=== PATIENT | male | born 1940 | race Caucasian/White ===

== ENCOUNTER 2021-04-14 07:43 | Observation (INO) | payer OTHER ==
[2021-04-14] VITALS (20 sets, daily range): BP systolic 104–152; BP diastolic 52–69
[~2021-04-14] VITALS: Ht 172.7 cm; Wt 76.7 kg
[~2021-04-14 07:43] MED LIST: METO-409 PO; SIMV40TA2 PO
[2021-04-14 09:05] LABS: BASOPHILS % (AUTO) 0.5 % (0.0-5.0); EOSINOPHILS % (AUTO) 1.6 % (0.0-8.0); HEMATOCRIT 41.5 % (42-54); LYMPHOCYTES % (AUTO) 42.9 % (21.0-51.0); MEAN CORPUSCULAR HEMOGLOBIN 34.6 pg (27.0-33.0); MEAN CORPUSCULAR HGB CONC 33.3 g/dL (32.0-36.0); MONOCYTES % (AUTO) 13.3 % (3.0-13.0); NEUTROPHILS % (AUTO) 41.2 % (40.0-77.0); PLATELET COUNT (AUTO) 185 K/uL (130-400); RED BLOOD CELL COUNT(AUTO) 3.99 MIL/uL (4.50-6.20); RED CELL DISTRIBUTION WIDTH 13.6 % (11.0-15.5); WHITE BLOOD COUNT (AUTO) 6.1 K/uL (4.8-10.8)
[2021-04-14 09:32] LABS: CREATININE 1.2 mg/dL (0.5-1.5); POTASSIUM 4.8 mmol/L (3.5-5.1)
[2021-04-14 09:34] LABS: INR 1.04 (0.85-1.15); PROTHROMBIN TIME 11.3 SEC (9.6-11.6)
[2021-04-14 09:36] LABS: PARTIAL THROMBOPLASTIN TIME 27.9 SEC (26.3-35.5)
[2021-04-14] MEDS ORDERED: LACTATED RINGERS 1000ML 1,000 ML IV ONE (09:39)
[2021-04-14] MEDS ORDERED: CEFAZOLIN SODIUM 1 GM VIAL ONE ×2 (09:39→15:04)
[2021-04-14] MEDS: CEFAZOLIN SODIUM 1 GM VIAL IVP SCH ×3 (09:50→17:00)
[2021-04-14] MEDS ORDERED: IBUPROFEN 600 MG TABLET PO PRN (12:00)
[2021-04-14] MEDS ORDERED: HYDROMORPHONE HCL 2 MG TAB PO PRN (12:00)
[2021-04-14] MEDS ORDERED: MORPHINE 4 MG SYG IVP PRN (12:00)
[2021-04-14] MEDS ORDERED: ONDANSETRON 4MG INJ IVP PRN (12:00)
[2021-04-14] MEDS ORDERED: TRANEXAMIC ACID 1000MG/10ML ONE (13:47)
[2021-04-14] MEDS ORDERED: MIDAZOLAM HCL 1 MG/ML 2ML VIAL ONE ×2 (14:08→15:22)
[2021-04-14] MEDS ORDERED: PROPOFOL 10 MG/ML 20ML VIAL IV ONE ×3 (14:19→16:40)
[2021-04-14] MEDS ORDERED: ROPIVACAINE 0.5% 5MG/ML 30ML IJ ONE ×2 (14:19→14:21)
[2021-04-14] MEDS ORDERED: GLYCOPYRROLATE 1 MG/5 ML SYRINGE ONE (14:22)
[2021-04-14] MEDS ORDERED: PHENYLEPHRINE HCL 10 MG/ML 1ML VIAL IV ONE (14:46)
[2021-04-14] MEDS ORDERED: LIDOCAINE PF 100MG/5ML (2%) SYRINGE 5ML ONE (14:49)
[2021-04-14] MEDS ORDERED: SUCCINYLCHOLINE CHLORIDE 20 MG/ML 10 ML VIAL ONE (14:49)
[2021-04-14] MEDS ORDERED: FENTANYL CITRATE PF 50 MCG/1 ML 2ML VIAL ONE (15:32)
[2021-04-14] MEDS ORDERED: DEXAMETHASONE SOD PHOSPHATE 10MG/ML 1ML VIAL ONE (16:30)
[2021-04-14] MEDS ORDERED: ONDANSETRON 4MG INJ ONE (16:31)
[2021-04-14] MEDS ORDERED: METOPROLOL SUCCINATE 50 MG TAB.SR.24H PO SCH (21:00)
[2021-04-14] MEDS: ASPIRIN 81 MG EC TAB PO SCH (21:31)
[2021-04-14] MEDS: FAMOTIDINE 20MG TAB PO SCH (21:31)
[2021-04-14] MEDS: ACETAMINOPHEN 500 MG TABLET PO SCH (21:35)
[2021-04-14] MEDS: 0.9%NACL 1000ML 1,000 ML IV SCH (22:00)
[2021-04-15] MEDS: CEFAZOLIN SODIUM 1 GM VIAL IVP SCH (00:28)
[2021-04-15 04:39] VITALS: BP 114/64
[2021-04-15 04:43] LABS: HEMATOCRIT 35.6 % (42-54); MEAN CORPUSCULAR HEMOGLOBIN 34.5 pg (27.0-33.0); MEAN CORPUSCULAR HGB CONC 33.4 g/dL (32.0-36.0); MEAN CORPUSCULAR VOLUME 103.2 fL (79-99); RED BLOOD CELL COUNT(AUTO) 3.45 MIL/uL (4.50-6.20); RED CELL DISTRIBUTION WIDTH 13.2 % (11.0-15.5); WHITE BLOOD COUNT (AUTO) 10.4 K/uL (4.8-10.8)
[2021-04-15 04:54] LABS: CREATININE 1.3 mg/dL (0.5-1.5); POTASSIUM 4.3 mmol/L (3.5-5.1)
[2021-04-15] MEDS: ACETAMINOPHEN 500 MG TABLET PO SCH ×2 (05:08→12:30)
[2021-04-15 07:00] VITALS: BP 130/71
[2021-04-15] MEDS: FAMOTIDINE 20MG TAB PO SCH (07:49)
[2021-04-15] MEDS: ASPIRIN 81 MG EC TAB PO SCH (07:49)
[2021-04-15] MEDS ORDERED: ROPIVICAINE 250MG+KETOROLAC 15MG+EPINEPHRINE 0.3+CLONIDINE 80 IV PRN ×5 (08:00)
[2021-04-15] MEDS: 0.9%NACL 1000ML 1,000 ML IV SCH (08:00)
[2021-04-15] MEDS ORDERED: CELECOXIB 200 MG CAP PO SCH (09:00)
[2021-04-15] MEDS ORDERED: POLYETHYLENE GLYCOL 3350 17 GM POWD.PACK PO SCH (09:00)
[2021-04-15 11:00] VITALS: BP 115/63
[2021-04-15 16:00] VITALS: BP 117/56
[2021-04-17] MEDS ORDERED: BISACODYL 10 MG SUPP.RECT RC PRN (12:00)
== END 2021-04-15 18:18 | disposition home or self-care (01) ==
LOC: DAH 07:43 → DAHIP 07:44 → DAH 07:48 → 4AH 19:00
PROVIDERS: ADMIT Orthopaedic Surgery; ATTEND Orthopaedic Surgery
DX: M17.12 Unilateral primary osteoarthritis, left knee (principal); Z20.822 Contact with and (suspected) exposure to COVID-19; I10 Essential (primary) hypertension; E78.00 Pure hypercholesterolemia, unspecified; Z79.899 Other long term (current) drug therapy
CPT/HCPCS: 27447; S2900; 36415; 73560; 80048; 85025; 85027; 85610; 85730; 87635; 87641; 88305; 88311; 93005; 96374; 97039; A4606; G0378; J0330; J0690; J1100; J2001; J2250; J2370; J2405; J2704; J2795; J3010; J3490; J7030; J7120

== ENCOUNTER 2021-04-19 09:24 | Emergency (ER) | payer OTHER ==
[~2021-04-19] VITALS: Ht 172.7 cm; Wt 76.7 kg
[2021-04-19 11:18] VITALS: BP 138/59
== END 2021-04-19 12:10 | disposition home or self-care (01) ==
LOC: EDH 09:24
DX: R22.42 Localized swelling, mass and lump, left lower limb (principal); I10 Essential (primary) hypertension; E78.00 Pure hypercholesterolemia, unspecified; Z88.5 Allergy status to narcotic agent; Z79.899 Other long term (current) drug therapy; Z79.82 Long term (current) use of aspirin
CPT/HCPCS: 93971